=== PATIENT | male | born 1960 | race Caucasian/White ===

== ENCOUNTER 2017-10-24 00:48 | Observation (INO) | payer BC ==
[~2017-10-24] VITALS: Ht 182.9 cm; Wt 130.7 kg
[~2017-10-24 00:48] MED LIST: CRESTOR20 MG PO; LOPRESSOR50 MG PO; MOBIC7.5 MG PO; PERCOCET 5/31 TABLET PO; PREDNISONE10 MG PO; SOTALOL120 MG PO; VALIUM5 MG PO; VALSARTAN160 MG PO; XARELTO20 MG PO
[2017-10-24 01:27] LABS: HEMATOCRIT 45.7 % (38.0-50.0); HEMOGLOBIN 15.7 G/DL (12.5-16.6); MCH 30.8 PG (29.0-34.0); MCHC 34.4 G/DL (30.0-36.0); MCV 89.6 FL (86-99); PLATELET COUNT 264 K/uL (156-360); RBC DIS.WIDTH-CV 12.4 % (11.8-14.6); RBC DIS.WIDTH-SD 41.2 % (39-53); WHITE BLOOD COUNT 11.4 K/uL (4.1-10.2)
[2017-10-24 01:36] LABS: CHLORIDE 106 mEq/L (99-109); POTASSIUM 4.3 mEq/L (3.7-5.4); SODIUM 138 mEq/L (136-147)
[2017-10-24 01:37] LABS: GLUCOSE 216 mg/dL (70-99)
[2017-10-24 01:41] LABS: CREATININE 1.1 mg/dL (0.6-1.3); GFR ESTIMATE (CALCULATED) > 59 mL/min/ (58.99-99999)
[2017-10-24 01:42] LABS: UREA NITROGEN (BUN) 14 mg/dL (9-23)
[2017-10-24 01:49] LABS: TROP-I INTERPRETATION NEGATIVE; TROPONIN-I < 0.01 ng/mL (0.0-0.30)
[2017-10-24 02:03] LABS: D-DIMER ELISA < 150.00 ng/mLDDU (<230)
[2017-10-24 05:07] VITALS: BP 150/85
[2017-10-24] MEDS ORDERED: ZETIA10 MG PO (05:36)
[2017-10-24] MEDS ORDERED: DIOVAN160 MG PO (05:37)
[2017-10-24] MEDS ORDERED: METOPROLOL SUCC50 MG PO (05:37)
[2017-10-24] MEDS ORDERED: CRESTOR20 MG PO (05:38)
[2017-10-24] MEDS ORDERED: MOBIC15 MG PO (05:39)
[2017-10-24 08:00] VITALS: BP 137/77
[2017-10-24 08:45] LABS: TROP-I INTERPRETATION NEGATIVE; TROPONIN-I < 0.01 ng/mL (0.0-0.30)
[2017-10-24] MEDS ORDERED: ROXICODONE5 MG PO (11:36)
[2017-10-24] MEDS ORDERED: ASPIRIN325 MG PO (11:39)
[2017-10-24 12:03] VITALS: BP 132/60
[2017-10-24 14:36] VITALS: BP 118/70; BP 77/55
[2017-10-24 15:29] LABS: TROP-I INTERPRETATION NEGATIVE; TROPONIN-I 0.01 ng/mL (0.0-0.30)
== END 2017-10-24 17:51 | disposition home or self-care (01) ==
LOC: EME 00:48 → EDOF 04:11 → ENRESERV 04:13 → 4SOUTH 04:52
PROVIDERS: Physician Assistant
DX: R07.9 Chest pain, unspecified (principal); I48.91 Unspecified atrial fibrillation; Z98.890 Other specified postprocedural states; I10 Essential (primary) hypertension; E78.5 Hyperlipidemia, unspecified; R42 Dizziness and giddiness; M25.562 Pain in left knee; Z82.49 Family history of ischemic heart disease and other diseases of the circulatory system; Z90.49 Acquired absence of other specified parts of digestive tract; Z79.82 Long term (current) use of aspirin
CPT/HCPCS: 71046; 80048; 84484; 85027; 85379; 93005; 99281; 99285; G0378; J1644; J3010; J7030